=== PATIENT | female | born 1940 | race Caucasian/White ===

== ENCOUNTER 2017-02-22 12:54 | Outpatient (CLI) | payer MEDICARE ==
--- NOTE | 2017-02-22 16:03 | RAD ---
PA AND LATERAL VIEWS CHEST: HISTORY: Dyspnea. Malignant neoplasm of the left lower lobe, left bronchus. COMPARISON: 11/25/2016 FINDINGS: The heart size is normal. The aorta is tortuous. The lungs are well expanded without confluent are as of consolidation, pneumothorax, or pleural effusions. There are postop changes in the lower cerv ical spine. Degenerative changes are present in the thoracic spine. IMPRESSION: Stable exam. No acute process. POS: [facility]
== END 2017-02-22 12:55 | disposition home or self-care (01) ==
LOC: RAD 12:54
PROVIDERS: ATTEND Thoracic Surgery (Cardiothoracic Vascular Surgery)
DX: C34.32 Malignant neoplasm of lower lobe, left bronchus or lung (principal)
CPT/HCPCS: 71020

== ENCOUNTER 2017-05-19 14:32 | Outpatient (CLI) | payer MEDICARE ==
--- NOTE | 2017-05-19 14:55 | RAD ---
CHEST 2 VIEWS: Date: )05/19/17 HISTORY: Dyspnea. COMPARISON: 02/22/17. FINDINGS: Cardiac silhouette and pulmonary vasculature are unremarkable. Lungs are hyperinflated. Mediastinum i s midline with aortic calcification. There is no confluent air space consolidation, pneumothorax, or pleural fluid evident. Metallic clips overlie the aorticopulmonary window. There are postoperative ch anges of the cervical spine. IMPRESSION: 1. COPD. 2. Atherosclerosis. POS: [facility]
== END 2017-05-19 14:33 | disposition home or self-care (01) ==
LOC: RAD 14:32
PROVIDERS: ATTEND Thoracic Surgery (Cardiothoracic Vascular Surgery)
DX: C34.32 Malignant neoplasm of lower lobe, left bronchus or lung (principal); J44.9 Chronic obstructive pulmonary disease, unspecified; I70.90 Unspecified atherosclerosis
CPT/HCPCS: 71046

== ENCOUNTER 2017-06-11 11:23 | Outpatient (CLI) | payer MEDICARE | END 2017-06-11 11:24 | disposition home or self-care (01) | LOC: BICMAMMO 11:23 | PROVIDERS: ATTEND Internal Medicine | DX: Z12.31 Encounter for screening mammogram for malignant neoplasm of breast (principal) | CPT/HCPCS: 77063; 77067 ==

== ENCOUNTER 2017-08-05 08:33 | Outpatient (CLI) | payer MEDICARE | END 2017-08-05 08:34 | disposition home or self-care (01) | LOC: BICRAD 08:33 | PROVIDERS: ATTEND Anesthesiology Pain Medicine | DX: M16.0 Bilateral primary osteoarthritis of hip (principal); M47.816 Spondylosis without myelopathy or radiculopathy, lumbar region; M43.16 Spondylolisthesis, lumbar region; M81.0 Age-related osteoporosis without current pathological fracture; I70.90 Unspecified atherosclerosis | CPT/HCPCS: 72110 ==

== ENCOUNTER 2017-10-21 18:38 | Emergency (ER) | payer MEDICARE ==
[2017-10-21 19:15] LABS: #Basophils 0.1 thou/uL (0.0-0.2); #Eosinphils 0.2 thou/uL (0.0-0.7); #Lymphocytes 1.1 thou/uL (1.20-3.40); #Monocytes 0.4 thou/uL (0.11-0.59); #Neutrophils 2.7 thou/uL (1.40-6.50); %Basophils 1.2 % (0.0-1.0); %Eosinophils 4.1 % (0.0-10.0); %Lymphocytes 25.7 % (21.0-51.0); %Monocytes 9.1 % (0.0-10.0); %Neutrophils 59.9 % (42.0-75.0); Hemoglobin 12.2 g/dL (12.0-16.0); Mean Corpuscular Hemoglobin 32.6 pg (27.0-31.0); Mean Corpuscular Volume 95.9 fL (78.0-98.0); Mean Platelet Volume 6.6 fL (7.4-10.4); Platelet Count 150 thou/uL (130-400); RBC Distribution Width 11.8 % (11.5-14.5); Red Blood Cell (RBC) Count 3.74 mill/uL (4.20-5.40); White Blood Cell (WBC) Count 4.4 thou/uL (4.8-10.8)
[2017-10-21 19:34] LABS: ALT (SGPT) 24 U/L (8-55); AST (SGOT) 29 U/L (5-34); Albumin 4.5 g/dL (3.4-4.8); Alkaline Phosphatase 70 U/L (40-150); Anion Gap 13 mmol/L (10-20); BUN (Urea Nitrogen) 17 mg/dL (9.8-20.1); Bilirubin, Total 0.2 mg/dL (0.2-1.2); Calc. Creatinine Clearance 0 mL/min (70-130); Calcium 9.7 mg/dL (7.8-10.44); Carbon Dioxide 27 mmol/L (23-31); Chloride 94 mmol/L (98-107); Estimated GFR-MDRD 40; Globulin 2.4 g/dL (2.4-3.5); Glucose 97 mg/dL (83-110); Potassium 3.4 mmol/L (3.5-5.1); Protein, Total 6.9 g/dL (6.0-8.3); Sodium 131 mmol/L (136-145)
[2017-10-21 19:39] LABS: Bilirubin Negative (Negative); Blood, Urine Negative (Negative); Clarity CLEAR (Clear); Glucose, Urine (Dipstick) Negative (Negative); Leukocyte Negative (Negative); Nitrite Negative (Negative); Protein, Urine (Dipstick) Negative (Neg-Trace); Specific Gravity, Urine 1.008 (1.002-1.036); Urobilinogen 0.2 mg/dL (0.2-1.0); pH, Urine 7.5 (5.0-9.0)
== END 2017-10-21 19:51 | disposition home or self-care (01) ==
LOC: ERS 18:38
DX: R33.9 Retention of urine, unspecified (principal); E03.9 Hypothyroidism, unspecified; I10 Essential (primary) hypertension; F41.9 Anxiety disorder, unspecified; Z79.899 Other long term (current) drug therapy
CPT/HCPCS: 51702; 80053; 81003; 85025

== ENCOUNTER 2017-11-17 12:38 | Outpatient (CLI) | payer MEDICARE ==
--- NOTE | 2017-11-17 14:06 | RAD ---
TWO VIEWS CHEST: Comparison: History: Neoplasm of the lower lobe. FINDINGS: Two views of the chest shows normal sized cardiomediastinal silhouette with atherosclerotic calcifica tions in the aorta. There is no evidence of consolidation, mass, or pleural effusion. Degenerative ch anges are seen in the spine. IMPRESSION: No evidence of acute cardiopulmonary disease. POS: [facility]
== END 2017-11-17 12:39 | disposition home or self-care (01) ==
LOC: RAD 12:38
PROVIDERS: ATTEND Thoracic Surgery (Cardiothoracic Vascular Surgery)
DX: C34.32 Malignant neoplasm of lower lobe, left bronchus or lung (principal)
CPT/HCPCS: 71046

== ENCOUNTER 2018-04-06 11:53 | Outpatient (CLI) | payer MEDICARE ==
--- NOTE | 2018-04-06 14:30 | RAD ---
THREE VIEWS OF THE LUMBOSACRAL SPINE: History: Low back pain for years. FINDINGS: Lateral view of the lumbosacral spine were performed in neutral, flexion, and extension. The L4-5 and L5-S1 intervertebral discs are narrowed. There is grade I anterolisthesis of L3 on L4 and grade I an terolisthesis of L5 on S1. This alignment is unchanged with flexion and extension. Moderate posterior facet arthrosis is seen in the lower lumbosacral spine. IMPRESSION: Degenerative changes in the lumbosacral spine with unchanged alignment with bending. POS: [facility]
--- NOTE | 2018-04-06 15:01 | MRI ---
MRI LUMBAR SPINE WITHOUT CONTRAST: Date: 04/06/18 COMPARISON: Radiograph dated 04/16/18 and 08/05/17. FINDINGS: There is mild Grade I anterolisthesis of L3 on L4, L4 on L5, and L5 on S1. Conus is seen to terminate at approximately L1. There are small T2, T1 hypointensity seen within both kidneys, likely reflective of small renal cysts . At L5-S1, there is a broad based pseudobulge with loss of disc space height inducing mild neural fora pelon narrowing. At L4-5, there is a broad based bulge with facet hypertrophy inducing mild right neural foraminal maria m rowing. At L3-4, there is a broad based bulge with facet hypertrophy inducing mild central canal narrowing an d mild bilateral neural foraminal narrowing. At L2-3, there is a broad based bulge with facet hypertrophy without appreciable central canal or arabella ral foraminal narrowing. At L1-2, there is no appreciable central canal or neural foraminal narrowing. There is a mild broad b ased bulge. At T12-L1, there is no appreciable central canal or neural foraminal narrowing. At T11-T12, there is no appreciable central canal or neural foraminal narrowing. At T10-T11, there is a broad based disc osteophyte complex causing mild effacement of the ventral sub arachnoid space with contact of the ventral spinal cord. This suggestions mild ventral cord flattenin g without definite cord signal abnormality. IMPRESSION: 1. Grade I anterolisthesis of L3-4, L4-5, and L5-S1. 2. Mild central canal narrowing at L3-4 with mild bilateral neural foraminal narrowing. 3. Mild bilateral neural foraminal narrowing at L5-S1 and on the right at L4-5. 4. Mild ventral effacement of the spinal cord due to disc osteophyte complex at T10-T11. No definite cord signal abnormality is evident. 5. Bilateral renal cysts. POS: [facility]
== END 2018-04-06 11:54 | disposition home or self-care (01) ==
LOC: BICMRI 11:53
PROVIDERS: ATTEND Anesthesiology Pain Medicine
DX: M48.062 Spinal stenosis, lumbar region with neurogenic claudication (principal); M47.817 Spondylosis without myelopathy or radiculopathy, lumbosacral region; M43.16 Spondylolisthesis, lumbar region; M43.17 Spondylolisthesis, lumbosacral region; M48.07 Spinal stenosis, lumbosacral region; M25.78 Osteophyte, vertebrae; N28.1 Cyst of kidney, acquired
CPT/HCPCS: 72100; 72148

== ENCOUNTER 2018-05-11 14:34 | Outpatient (CLI) | payer MEDICARE ==
--- NOTE | 2018-05-11 16:12 | RAD ---
TWO VIEWS CHEST: Comparison: 11-17-17 History: Malignant neoplasm in the lower lobe of the left lung. FINDINGS: Two views of the chest shows normal sized cardiomediastinal silhouette with atherosclerotic calcifica tions in the aorta. There is no evidence of consolidation, mass, or pleural effusion. Hardware is see n in the cervical spine. IMPRESSION: No evidence of acute cardiopulmonary disease. POS: [facility]
== END 2018-05-11 14:35 | disposition home or self-care (01) ==
LOC: RAD 14:34
PROVIDERS: ATTEND Thoracic Surgery (Cardiothoracic Vascular Surgery)
DX: C34.32 Malignant neoplasm of lower lobe, left bronchus or lung (principal)
CPT/HCPCS: 71046

== ENCOUNTER 2018-06-13 09:31 | Outpatient (CLI) | payer MEDICARE | END 2018-06-13 09:32 | disposition home or self-care (01) | LOC: BICMAMMO 09:31 | PROVIDERS: ATTEND Internal Medicine | DX: Z12.31 Encounter for screening mammogram for malignant neoplasm of breast (principal); R92.1 Mammographic calcification found on diagnostic imaging of breast; Z85.118 Personal history of other malignant neoplasm of bronchus and lung; Z85.42 Personal history of malignant neoplasm of other parts of uterus | CPT/HCPCS: 77063; 77067 ==

== ENCOUNTER 2018-08-22 15:44 | Outpatient (CLI) | payer MEDICARE ==
--- NOTE | 2018-08-22 16:23 | RAD ---
Exam: Chest 2 views HISTORY:Cough Comparison: 05/11/2018 FINDINGS: Lungs: No masses or consolidation. Cardiac silhouette:Stable Pulmonary vessels: Stable prominence of right hilar region which may relate to ectatic pulmonary vasc ulature Pleural Spaces: Mild blunting of costophrenic sulci could relate to small volume pleural fluid versus thickening Pneumothorax: None Osseous abnormalities: None of acuity. IMPRESSION: Stable chest
== END 2018-08-22 15:45 | disposition home or self-care (01) ==
LOC: BICRAD 15:44
PROVIDERS: ATTEND Internal Medicine
DX: R05 Cough (principal)
CPT/HCPCS: 71046

== ENCOUNTER 2018-11-16 14:20 | Outpatient (CLI) | payer MEDICARE ==
--- NOTE | 2018-11-16 15:22 | RAD ---
2 VIEWS CHEST: Date: 11/16/18 COMPARISON: 05/11/18. HISTORY: Malignant neoplasm of the left lung. FINDINGS: 2 views of the chest show a normal sized cardiomediastinal silhouette with atherosclerotic calcificat ions in the aorta. There is no evidence of consolidation, mass, or pleural effusion. Degenerative ping nges are seen in the spine. IMPRESSION: No evidence of acute cardiopulmonary disease. POS: [facility]
== END 2018-11-16 14:21 | disposition home or self-care (01) ==
LOC: RAD 14:20
PROVIDERS: ATTEND Thoracic Surgery (Cardiothoracic Vascular Surgery)
DX: C34.32 Malignant neoplasm of lower lobe, left bronchus or lung (principal)
CPT/HCPCS: 71046

== ENCOUNTER 2018-11-29 12:10 | Outpatient (CLI) | payer MEDICARE ==
--- NOTE | 2018-11-29 12:33 | RAD ---
Exam:Right knee 4 view HISTORY: Pain. Fall. COMPARISON: None FINDINGS: No joint effusion. No significant loss of joint space height. No fracture. Atherosclerosis is noted IMPRESSION: No fracture.
--- NOTE | 2018-11-29 12:34 | RAD ---
Exam:4 views left knee HISTORY: Pain. Fall. COMPARISON: None FINDINGS: No joint effusion. No significant loss of joint space height. No fracture or malalignment. Atherosclerosis is noted. IMPRESSION: No fracture.
--- NOTE | 2018-11-29 12:34 | RAD ---
Exam:Left tibia fibula 2 views HISTORY: Fall. Pain. COMPARISON: None FINDINGS: No fracture. No cortical irregularity or periosteal reaction IMPRESSION: No fracture.
== END 2018-11-29 12:11 | disposition home or self-care (01) ==
LOC: BICRAD 12:10
PROVIDERS: ATTEND Physician Assistant
DX: M79.662 Pain in left lower leg (principal); M25.561 Pain in right knee; M25.562 Pain in left knee; W19.XXXA Unspecified fall, initial encounter

== ENCOUNTER 2019-03-22 10:39 | Outpatient (CLI) | payer MEDICARE ==
--- NOTE | 2019-03-22 10:55 | RAD ---
XR Chest Pa Lat STANDARD HISTORY: Chest pain, lung cancer COMPARISON: 08/22/2018 FINDINGS: The heart size is normal. The lungs are well expanded without focal areas of consolidation, pneumothorax or pleural effusions. Prominence of the right hilar region is stable. Degenerative changes in the spine are seen. IMPRESSION: No radiographic evidence of acute cardiopulmonary process.
== END 2019-03-22 10:40 | disposition home or self-care (01) ==
LOC: BICRAD 10:39
PROVIDERS: ATTEND Internal Medicine
DX: R07.89 Other chest pain (principal)
CPT/HCPCS: 71046

== ENCOUNTER 2019-04-04 08:31 | Outpatient (CLI) | payer MEDICARE ==
--- NOTE | 2019-04-04 09:04 | BD ---
EXAM: Bone densitometry using DEXA HISTORY: 78 yo female. Screening for postmenopausal osteoporosis FINDINGS: L1--bone mineral density 0.838 g/sq cm; T score -1.4 ; Z score 1.0 L2--bone mineral density 0.917 g/sq cm; T score -1.0 ; Z score 1.7 L3--bone mineral density 1.154 g/sq cm; T score 0.6 ; Z score 3.4 L4--bone mineral density 0.984 g/sq cm; T score -0.7 ; Z score 2.2 Total L1-L4--bone mineral density 0.965 g/sq cm; T score -0.7 ; Z score 2.0 Left femoral neck--bone mineral density0.578; T score -2.4 ; Z score -0.1 Total proximal left femur--bone mineral density 0.669; T score -2.2 ; Z score -0.1 There has been an interval improvement of 2% in the BMD of the lumbar spine and a improvement of 2. 6% in the BMD of the proximal femur since the previous study of 03/01/2017. IMPRESSION: Osteopenia
== END 2019-04-04 08:32 | disposition home or self-care (01) ==
LOC: BICMAMMO 08:31
PROVIDERS: ATTEND Internal Medicine
DX: M81.0 Age-related osteoporosis without current pathological fracture (principal); M85.80 Other specified disorders of bone density and structure, unspecified site
CPT/HCPCS: 77080

== ENCOUNTER 2019-06-21 09:35 | Outpatient (CLI) | payer MEDICARE ==
--- NOTE | 2019-06-21 10:04 | MMO ---
Bilateral MAMMO Bilat Screen [facility]. CLINICAL HISTORY: Patient is 79 years old and is seen for screening. The patient has no family history of breast cancer. The patient has a history of lung cancer in 2016 and uterine cancer at age 38. VIEWS: The views performed were: bilateral craniocaudal with tomosynthesis and bilateral mediolateral oblique with tomosynthesis. FILMS COMPARED: The present examination has been compared to prior imaging studies performed at [facility] on 04/06/2015, 05/26/2016, 06/11/2017 and 06/13/2018. This study has been interpreted with the assistance of computer-aided detection. MAMMOGRAM FINDINGS: There are scattered fibroglandular densities. There are stable benign appearing calcifications seen in both breasts. There are also vascular calcifications. There are no suspicious masses, suspicious calcifications, or new areas of architectural distortion. IMPRESSION: THERE IS NO MAMMOGRAPHIC EVIDENCE OF MALIGNANCY. A ROUTINE FOLLOW-UP MAMMOGRAM IN 1 YEAR IS RECOMMENDED. THE RESULTS OF THIS EXAM WERE SENT TO THE PATIENT. ACR BI-RADS Category 2 - Benign finding MAMMOGRAPHY NOTE: 1. A negative mammogram report should not delay a biopsy if a dominant of clinically suspicious mass is present. 2. Approximately 10% to 15% of breast cancers are not detected by mammography. 3. Adenosis and dense breasts may obscure an underlying neoplasm. Reported by: CHARIS VALDEZ MD Electonically Signed: [id number]
== END 2019-06-21 09:36 | disposition home or self-care (01) ==
LOC: BICMAMMO 09:35
PROVIDERS: ATTEND Internal Medicine
DX: Z12.31 Encounter for screening mammogram for malignant neoplasm of breast (principal); Z85.118 Personal history of other malignant neoplasm of bronchus and lung; Z85.42 Personal history of malignant neoplasm of other parts of uterus
CPT/HCPCS: 77063; 77067

== ENCOUNTER 2019-09-03 13:26 | Emergency (ER) | payer MEDICARE ==
--- NOTE | 2019-09-03 14:40 | RAD ---
Radiograph left digits 2 views: HISTORY: 79-year-old female status post laceration injury. FINDINGS: No evidence of fracture or dislocation of the second, third, and fourth proximal, middle, and distal phalanges. Focal round 5 mm hyperdensity overlying the soft tissues abutting the volar aspect of the third distal tuft on the lateral view may represent part of the overlying bandage. No definite pereira bcutaneous emphysema identified. IMPRESSION: No fracture
[2019-09-03] MEDS ORDERED: Bupivacaine 0.5% 10 ML VIAL ONE (14:45)
[2019-09-03] MEDS ORDERED: Lidocaine 1% PF 5 ML VIAL ONE (14:45)
[2019-09-03] MEDS ORDERED: Bacitracin 1 PK ONE (15:41)
== END 2019-09-03 15:55 | disposition home or self-care (01) ==
LOC: ERS 13:26
DX: S61.313A Laceration without foreign body of left middle finger with damage to nail, initial encounter (principal); E03.9 Hypothyroidism, unspecified; F41.9 Anxiety disorder, unspecified; Z85.118 Personal history of other malignant neoplasm of bronchus and lung; M81.0 Age-related osteoporosis without current pathological fracture; I10 Essential (primary) hypertension; Z79.899 Other long term (current) drug therapy; W22.8XXA Striking against or struck by other objects, initial encounter
CPT/HCPCS: 11750; J2001; J3490

== ENCOUNTER 2019-11-13 15:21 | Emergency (ER) | payer MEDICARE | END 2019-11-13 16:30 | disposition left against medical advice (07) | LOC: ERS 15:21 | DX: Z53.21 Procedure and treatment not carried out due to patient leaving prior to being seen by health care provider (principal) ==

== ENCOUNTER 2020-06-24 08:41 | Outpatient (CLI) | payer MEDICARE ==
--- NOTE | 2020-06-24 10:42 | MMO ---
Bilateral MAMMO Bilat Screen [facility]. CLINICAL HISTORY: Patient is 80 years old and is seen for screening. The patient has no family history of breast cancer. The patient has a history of lung cancer in 2016 and uterine cancer at age 38. VIEWS: The views performed were: bilateral craniocaudal with tomosynthesis and bilateral mediolateral oblique with tomosynthesis. FILMS COMPARED: The present examination has been compared to prior imaging studies performed at [facility] on 05/26/2016, 06/11/2017, 06/13/2018 and 06/21/2019. This study has been interpreted with the assistance of computer-aided detection. MAMMOGRAM FINDINGS: There are scattered fibroglandular densities. Benign calcifications are noted bilaterally. There are no suspicious masses, suspicious calcifications, or new areas of architectural distortion. IMPRESSION: THERE IS NO MAMMOGRAPHIC EVIDENCE OF MALIGNANCY. A ROUTINE FOLLOW-UP MAMMOGRAM IN 1 YEAR IS RECOMMENDED. THE RESULTS OF THIS EXAM WERE SENT TO THE PATIENT. ACR BI-RADS Category 2 - Benign finding MAMMOGRAPHY NOTE: 1. A negative mammogram report should not delay a biopsy if a dominant of clinically suspicious mass is present. 2. Approximately 10% to 15% of breast cancers are not detected by mammography. 3. Adenosis and dense breasts may obscure an underlying neoplasm. Reported by: JOSEFA PARNELL MD Electonically Signed: [id number]
== END 2020-06-24 08:42 | disposition home or self-care (01) ==
LOC: BICMAMMO 08:41
PROVIDERS: ATTEND Internal Medicine
DX: Z12.31 Encounter for screening mammogram for malignant neoplasm of breast (principal); Z85.118 Personal history of other malignant neoplasm of bronchus and lung; Z85.42 Personal history of malignant neoplasm of other parts of uterus
CPT/HCPCS: 77063; 77067

== ENCOUNTER 2020-07-05 10:33 | Outpatient (CLI) | payer MEDICARE | END 2020-07-05 10:34 | disposition home or self-care (01) | LOC: BICRAD 10:33 | PROVIDERS: ATTEND Internal Medicine | DX: Z08 Encounter for follow-up examination after completed treatment for malignant neoplasm (principal); Z85.118 Personal history of other malignant neoplasm of bronchus and lung | CPT/HCPCS: 71046 ==

== ENCOUNTER 2021-03-10 11:07 | Outpatient (CLI) | payer MEDICARE ==
[2021-03-10 20:27] LABS: SARS-CoV-2 PCR by NAA Not Detected (NotDetected)
== END 2021-03-10 11:08 | disposition home or self-care (01) ==
LOC: LABBT 11:07
PROVIDERS: ATTEND Family Medicine
DX: Z01.812 Encounter for preprocedural laboratory examination (principal); Z20.822 Contact with and (suspected) exposure to COVID-19
CPT/HCPCS: U0003; U0005

== ENCOUNTER 2021-03-12 09:19 | Outpatient (CLI) | payer MEDICARE | END 2021-03-12 09:20 | disposition home or self-care (01) | PROVIDERS: ATTEND Physician Assistant Medical | DX: R13.13 Dysphagia, pharyngeal phase (principal); K21.9 Gastro-esophageal reflux disease without esophagitis | CPT/HCPCS: 74230 ==

== ENCOUNTER 2021-03-26 07:03 | Emergency (ER) | payer MEDICARE ==
[2021-03-26 07:39] LABS: #Eosinphils 0.1 thou/uL (0.0-0.7); #Lymphocytes 0.9 thou/uL (1.20-3.40); #Monocytes 0.4 thou/uL (0.11-0.59); #Neutrophils 4.7 thou/uL (1.40-6.50); %Basophils 0.3 % (0.0-1.0); %Eosinophils 0.9 % (0.0-10.0); %Lymphocytes 14.4 % (21.0-51.0); %Monocytes 6.8 % (0.0-10.0); %Neutrophils 77.6 % (42.0-75.0); Hemoglobin 14.3 g/dL (12.0-16.0); Mean Corpuscular HGB CONC 33.7 g/dL (32.0-36.0); Mean Corpuscular Hemoglobin 32.5 pg (27.0-31.0); Mean Corpuscular Volume 96.6 fL (78.0-98.0); Mean Platelet Volume 6.8 fL (7.4-10.4); Platelet Count 175 thou/uL (130-400); Red Blood Cell (RBC) Count 4.39 mill/uL (4.20-5.40); White Blood Cell (WBC) Count 6.1 thou/uL (4.8-10.8)
[2021-03-26] MEDS ORDERED: Ondansetron PF 4 MG/2 ML Vial ONE (07:48)
[2021-03-26] MEDS ORDERED: Morphine 4 MG/ML VIAL ONE (07:48)
[2021-03-26 08:00] LABS: ALT (SGPT) 19 U/L (8-55); AST (SGOT) 23 U/L (5-34); Albumin 4.6 g/dL (3.4-4.8); Alkaline Phosphatase 90 U/L (40-110); Anion Gap 15 mmol/L (10-20); BUN (Urea Nitrogen) 10 mg/dL (9.8-20.1); Bilirubin, Total 0.6 mg/dL (0.2-1.2); Calc. Creatinine Clearance 0 mL/min (70-130); Calcium 9.6 mg/dL (7.8-10.44); Carbon Dioxide 29 mmol/L (23-31); Chloride 94 mmol/L (98-107); Globulin 2.8 g/dL (2.4-3.5); Glucose 124 mg/dL (83-110); Potassium 3.5 mmol/L (3.5-5.1); Protein, Total 7.4 g/dL (5.8-8.1); Sodium 134 mmol/L (136-145)
[2021-03-26 10:49] LABS: SARS-CoV-2 NAA Rapid Test Not Detected (NotDetected)
== END 2021-03-26 11:08 | disposition admitted as inpatient to this hospital (09) ==
LOC: ERS 07:03
DX: T18.128A Food in esophagus causing other injury, initial encounter (principal); Z20.822 Contact with and (suspected) exposure to COVID-19; E03.9 Hypothyroidism, unspecified; M81.0 Age-related osteoporosis without current pathological fracture; Z87.891 Personal history of nicotine dependence; I10 Essential (primary) hypertension; Z79.899 Other long term (current) drug therapy
CPT/HCPCS: 71045; 74177; 80053; 84484; 85025; 93005; 94760; U0002; 96374; 96375; J2270; J2405

== ENCOUNTER 2021-03-28 10:38 | Emergency (ER) | payer MEDICARE ==
[2021-03-28] MEDS ORDERED: HYDROcodone/Acetaminophen 10/325 mg Tablet ONE (11:19)
== END 2021-03-28 11:51 | disposition home or self-care (01) ==
LOC: ERS 10:38
DX: B02.9 Zoster without complications (principal); E03.9 Hypothyroidism, unspecified; I10 Essential (primary) hypertension; M81.0 Age-related osteoporosis without current pathological fracture; Z87.891 Personal history of nicotine dependence; Z85.42 Personal history of malignant neoplasm of other parts of uterus; Z85.118 Personal history of other malignant neoplasm of bronchus and lung; Z79.899 Other long term (current) drug therapy
CPT/HCPCS: 99282

== ENCOUNTER 2021-04-18 09:51 | Outpatient (CLI) | payer MEDICARE | END 2021-04-18 09:52 | disposition home or self-care (01) | LOC: BICULT 09:51 | PROVIDERS: ATTEND Internal Medicine | DX: N13.30 Unspecified hydronephrosis (principal); K83.8 Other specified diseases of biliary tract; N28.1 Cyst of kidney, acquired; N32.89 Other specified disorders of bladder; Z90.49 Acquired absence of other specified parts of digestive tract | CPT/HCPCS: 76705; 76770 ==

== ENCOUNTER 2021-05-08 12:17 | Outpatient (CLI) | payer MEDICARE | END 2021-05-08 12:18 | disposition home or self-care (01) | LOC: BICRAD 12:17 | PROVIDERS: ATTEND Internal Medicine | DX: R05.9 Cough, unspecified (principal) | CPT/HCPCS: 71046 ==

== ENCOUNTER 2022-02-16 10:23 | Outpatient (CLI) | payer MEDICARE | END 2022-02-16 10:24 | disposition home or self-care (01) | LOC: BICRAD 10:23 | PROVIDERS: ATTEND Nurse Practitioner Family | DX: C34.32 Malignant neoplasm of lower lobe, left bronchus or lung (principal) | CPT/HCPCS: 71046 ==

== ENCOUNTER 2022-06-30 13:49 | Outpatient (CLI) | payer MEDICARE, OTHER | END 2022-06-30 13:50 | disposition home or self-care (01) | LOC: BICRAD 13:49 | PROVIDERS: ATTEND Internal Medicine | DX: Z08 Encounter for follow-up examination after completed treatment for malignant neoplasm (principal); Z85.118 Personal history of other malignant neoplasm of bronchus and lung | CPT/HCPCS: 71046 ==

== ENCOUNTER 2022-10-14 12:42 | Outpatient (CLI) | payer MEDICARE, OTHER | END 2022-10-14 12:43 | disposition home or self-care (01) | LOC: BICMAMMO 12:42 | PROVIDERS: ATTEND Internal Medicine | DX: Z12.31 Encounter for screening mammogram for malignant neoplasm of breast (principal); Z78.0 Asymptomatic menopausal state; M81.0 Age-related osteoporosis without current pathological fracture | CPT/HCPCS: 77063; 77067; 77080 ==

== ENCOUNTER 2023-03-01 11:17 | Outpatient (CLI) | payer MEDICARE | END 2023-03-01 11:18 | disposition home or self-care (01) | LOC: RAD 11:17 | PROVIDERS: ATTEND Internal Medicine | DX: R13.12 Dysphagia, oropharyngeal phase (principal); K21.9 Gastro-esophageal reflux disease without esophagitis; R05.8 Other specified cough | CPT/HCPCS: 74230 ==

== ENCOUNTER 2023-03-11 12:09 | Outpatient (CLI) | payer MEDICARE | END 2023-03-11 12:10 | disposition home or self-care (01) | LOC: BICRAD 12:09 | PROVIDERS: ATTEND Internal Medicine | DX: R05.3 Chronic cough (principal); I70.0 Atherosclerosis of aorta; Q25.46 Tortuous aortic arch; J98.4 Other disorders of lung | CPT/HCPCS: 71046 ==

== ENCOUNTER 2023-10-19 12:45 | Outpatient (CLI) | payer MEDICARE | END 2023-10-19 12:46 | disposition home or self-care (01) | LOC: BICMAMMO 12:45 | PROVIDERS: ATTEND Internal Medicine | DX: Z12.31 Encounter for screening mammogram for malignant neoplasm of breast (principal); Z85.118 Personal history of other malignant neoplasm of bronchus and lung; Z85.42 Personal history of malignant neoplasm of other parts of uterus | CPT/HCPCS: 77063; 77067 ==

== ENCOUNTER 2023-11-26 11:34 | Outpatient (CLI) | payer MEDICARE ==
[2023-11-26] MEDS ORDERED: Barium Sulfate 96% 176 GM BOT (xray ONLY) ONE (12:08)
[2023-11-26] MEDS ORDERED: E-Z-HD 98% W/W 340GM BOT (x-ray ONLY) ONE (12:08)
== END 2023-11-26 11:35 | disposition home or self-care (01) ==
LOC: RAD 11:34
PROVIDERS: ATTEND Physician Assistant Medical
DX: K21.9 Gastro-esophageal reflux disease without esophagitis (principal); R13.14 Dysphagia, pharyngoesophageal phase; K59.00 Constipation, unspecified; R30.0 Dysuria; K22.89 Other specified disease of esophagus
CPT/HCPCS: 74220

== ENCOUNTER 2024-10-20 13:52 | Outpatient (CLI) | payer MEDICARE | END 2024-10-20 13:53 | disposition home or self-care (01) | LOC: BICMAMMO 13:52 | PROVIDERS: ATTEND Internal Medicine | DX: Z12.31 Encounter for screening mammogram for malignant neoplasm of breast (principal); Z85.118 Personal history of other malignant neoplasm of bronchus and lung; Z85.42 Personal history of malignant neoplasm of other parts of uterus | CPT/HCPCS: 77063; 77067 ==

== ENCOUNTER 2024-11-24 16:42 | Inpatient (IN) | payer MEDICARE ==
[2024-11-24] MEDS ORDERED: Acetaminophen 500 MG TAB ONE (17:42)
[2024-11-24] MEDS ORDERED: CEFAZOLIN 2 GM VIAL ONE (17:43)
[2024-11-24] MEDS ORDERED: Ondansetron PF 4 MG/2 ML Vial ONE (17:43)
[2024-11-24 17:55] LABS: #Basophils 0.03 10x3/uL (0.0-0.2); #Eosinophils Less than 0.03 10x3/uL (0.0-0.7); #Monocytes 1.36 10x3/uL (0.11-0.59); #Neutrophils 7.96 10x3/uL (1.40-6.50); %Basophils 0.3 % (0.0-1.0); %Eosinophils 0.2 % (0.0-10.0); %Lymphocytes 7.3 % (21.0-51.0); %Monocytes 13.4 % (0.0-10.0); %Neutrophils 78.2 % (42.0-75.0); Hematocrit 31.1 % (36.0-47.0); Hemoglobin 10.3 g/dL (12.0-16.0); Mean Corpuscular Hemoglobin 30.2 pg (27.0-31.0); Mean Corpuscular Volume 91.2 fL (78.0-98.0); Platelet Count 193 10x3/uL (130-400); Red Blood Cell (RBC) Count 3.41 mill/uL (4.20-5.40); White Blood Cell (WBC) Count 10.17 10x3/uL (4.8-10.8)
[2024-11-24 18:04] LABS: Actual Bicarbonate (HCO3v) 24.3 mEq/L (22-28); Base Excess -0.2 mEq/L (-2.0 to +3.0); Calcium, Ionized (venous) 1.12 mmol/L (1.16-1.32); Chloride (VBG) 92 mmol/L (98-106); Hematocrit-VBG 34 % (36.0-47.0); Hemoglobin (Hb) 11.7 g/dL (11.7-16.1); Potassium (VBG) 3.88 mmol/L (3.70-5.30); Sodium 129 mmol/L (133-146)
[2024-11-24 18:27] LABS: ALT (SGPT) 12 U/L (Less than 34); AST (SGOT) 15 U/L (11-34); Albumin 3.5 g/dL (3.1-4.5); Alkaline Phosphatase 88 U/L (40-110); Anion Gap 16 mmol/L (10-20); BUN (Urea Nitrogen) 16 mg/dL (9.8-20.1); Bilirubin, Total 0.5 mg/dL (0.3-1.2); Calc. Creatinine Clearance 0 mL/min (70-130); Calcium 9.2 mg/dL (7.8-10.44); Carbon Dioxide 24 mmol/L (23-31); Chloride 94 mmol/L (98-107); Globulin 3.4 g/dL (2.4-3.5); Glucose 125 mg/dL (83-110); Potassium 3.9 mmol/L (3.5-5.1); Sodium 130 mmol/L (136-145)
[2024-11-24 18:40] LABS: CAUTI Indications for Culture Pelvic or flank pain; Glucose, Urine (Dipstick) Normal (Negative); Leukocyte 500 Leu/uL (Negative); Protein, Urine (Dipstick) 100 mg/dL (Neg-Trace); RBC/HPF 21-50 HPF (0-3); Specific Gravity, Urine 1.012 (1.002-1.036); WBC/HPF Greater than 50 HPF (0-3)
[2024-11-24 18:45] LABS: Bacteria/HPF 1+ HPF (None Seen)
[2024-11-24 18:46] LABS: Urine Culture Reflex Yes Yes
[2024-11-24 18:48] LABS: Magnesium 1.7 mg/dL (1.6-2.6)
[2024-11-24 18:52] LABS: Troponin I 0.020 ng/mL (< 0.028)
[2024-11-24] MEDS ORDERED: Cefepime 2 GM VIAL ONE (19:05)
[2024-11-24] MEDS ORDERED: Acetaminophen 325 MG TAB PO PRN (19:45)
[2024-11-24] MEDS ORDERED: Ondansetron PF 4 MG/2 ML Vial IVP PRN (19:45)
[2024-11-24 20:35] LABS: Osmolality, Serum 271 mOsm/kg (280-301)
[2024-11-24 20:36] LABS: Osmolality, Urine 351 mOsm/kg (50-1200)
[2024-11-24 20:37] VITALS: BMI 25.1
[2024-11-25] MEDS: Benzonatate 100 MG CAP PO SCH (03:42)
[2024-11-25 05:25] LABS: #Basophils 0.05 10x3/uL (0.0-0.2); #Eosinophils 0.10 10x3/uL (0.0-0.7); #Monocytes 1.10 10x3/uL (0.11-0.59); #Neutrophils 6.68 10x3/uL (1.40-6.50); %Basophils 0.6 % (0.0-1.0); %Eosinophils 1.1 % (0.0-10.0); %Lymphocytes 10.7 % (21.0-51.0); %Monocytes 12.3 % (0.0-10.0); %Neutrophils 74.9 % (42.0-75.0); Hematocrit 32.3 % (36.0-47.0); Hemoglobin 10.6 g/dL (12.0-16.0); Mean Corpuscular Hemoglobin 30.2 pg (27.0-31.0); Mean Corpuscular Volume 92.0 fL (78.0-98.0); Platelet Count 195 10x3/uL (130-400); Red Blood Cell (RBC) Count 3.51 mill/uL (4.20-5.40); White Blood Cell (WBC) Count 8.92 10x3/uL (4.8-10.8)
[2024-11-25 05:39] LABS: Anion Gap 16 mmol/L (10-20); BUN (Urea Nitrogen) 15 mg/dL (9.8-20.1); Calc. Creatinine Clearance 39 mL/min (70-130); Calcium 9.1 mg/dL (7.8-10.44); Carbon Dioxide 26 mmol/L (23-31); Chloride 97 mmol/L (98-107); Glucose 99 mg/dL (83-110); Magnesium 1.8 mg/dL (1.6-2.6); Potassium 4.0 mmol/L (3.5-5.1); Sodium 135 mmol/L (136-145)
[2024-11-25] MEDS: Enoxaparin 30 MG (0.3 mL) SYRINGE SC SCH (08:27)
[2024-11-25] MEDS: Furosemide 20 MG TAB PO SCH (08:28)
[2024-11-25] MEDS: Cholecalciferol 1,000 UNITS (25 MCG) TAB PO SCH (08:28)
[2024-11-25] MEDS: Losartan 25 MG TAB PO SCH (08:28)
[2024-11-25] MEDS: predniSONE 20 MG TAB PO SCH (08:28)
[2024-11-25] MEDS: Pantoprazole 40 MG DR.TAB PO SCH (08:28)
[2024-11-25] MEDS ORDERED: Non-Formulary Item 1 EACH (Ascorbic Acid [Vitamin C] 1,000 MG Tablet) PO SCH (09:00)
[2024-11-25] MEDS ORDERED: Non-Formulary Item 1 EACH (Omeprazole [Omeprazole] 20 MG Capsule.Dr) PO SCH (09:00)
[2024-11-25] MEDS ORDERED: Non-Formulary Item 1 EACH (Cholecalciferol (Vitamin D3) [Vitamin D3] 1,000 UNIT Capsule) PO SCH (09:00)
[2024-11-25] MEDS: Acetaminophen 325 MG TAB PO PRN (10:38)
[2024-11-25 12:11] VITALS: BMI 25.1
[2024-11-25] MEDS: HYDROcodone/Acetaminophen 5/325 mg Tablet PO PRN (12:32)
[2024-11-25] MEDS: Benzonatate 100 MG CAP PO PRN (20:10)
[2024-11-25] MEDS ORDERED: Simvastatin 10 MG TAB PO SCH (21:00)
[2024-11-26] MEDS: guaiFENesin/Codeine 200 mg/20 mg 10 ml Cup PO SCH (03:19)
[2024-11-26 04:50] LABS: #Basophils Less than 0.03 10x3/uL (0.0-0.2); #Eosinophils 0.05 10x3/uL (0.0-0.7); #Monocytes 0.78 10x3/uL (0.11-0.59); #Neutrophils 7.49 10x3/uL (1.40-6.50); %Basophils 0.2 % (0.0-1.0); %Eosinophils 0.5 % (0.0-10.0); %Lymphocytes 11.2 % (21.0-51.0); %Monocytes 8.2 % (0.0-10.0); %Neutrophils 78.6 % (42.0-75.0); Hematocrit 29.7 % (36.0-47.0); Hemoglobin 9.8 g/dL (12.0-16.0); Mean Corpuscular Hemoglobin 30.2 pg (27.0-31.0); Mean Corpuscular Volume 91.7 fL (78.0-98.0); Platelet Count 216 10x3/uL (130-400); Red Blood Cell (RBC) Count 3.24 mill/uL (4.20-5.40); White Blood Cell (WBC) Count 9.53 10x3/uL (4.8-10.8)
[2024-11-26 05:18] LABS: Anion Gap 12 mmol/L (10-20); BUN (Urea Nitrogen) 20 mg/dL (9.8-20.1); Calc. Creatinine Clearance 30 mL/min (70-130); Calcium 9.4 mg/dL (7.8-10.44); Carbon Dioxide 27 mmol/L (23-31); Chloride 99 mmol/L (98-107); Glucose 110 mg/dL (83-110); Magnesium 1.9 mg/dL (1.6-2.6); Potassium 4.3 mmol/L (3.5-5.1); Sodium 134 mmol/L (136-145)
[2024-11-26] MEDS: Enoxaparin 40 MG (0.4 mL) SYRINGE SC SCH (08:06)
[2024-11-27] MEDS: guaiFENesin/Codeine 200 mg/20 mg 10 ml Cup PO PRN (04:44)
[2024-11-27 07:07] LABS: #Basophils 0.04 10x3/uL (0.0-0.2); #Eosinophils 0.12 10x3/uL (0.0-0.7); #Monocytes 0.84 10x3/uL (0.11-0.59); #Neutrophils 7.78 10x3/uL (1.40-6.50); %Basophils 0.4 % (0.0-1.0); %Eosinophils 1.1 % (0.0-10.0); %Lymphocytes 14.2 % (21.0-51.0); %Monocytes 8.0 % (0.0-10.0); %Neutrophils 73.9 % (42.0-75.0); Hematocrit 34.8 % (36.0-47.0); Hemoglobin 11.3 g/dL (12.0-16.0); Mean Corpuscular Hemoglobin 29.8 pg (27.0-31.0); Mean Corpuscular Volume 91.8 fL (78.0-98.0); Platelet Count 331 10x3/uL (130-400); Red Blood Cell (RBC) Count 3.79 mill/uL (4.20-5.40); White Blood Cell (WBC) Count 10.53 10x3/uL (4.8-10.8)
[2024-11-27 07:31] LABS: Anion Gap 16 mmol/L (10-20); BUN (Urea Nitrogen) 33 mg/dL (9.8-20.1); Calc. Creatinine Clearance 35 mL/min (70-130); Calcium 10.0 mg/dL (7.8-10.44); Carbon Dioxide 27 mmol/L (23-31); Chloride 95 mmol/L (98-107); Glucose 104 mg/dL (83-110); Potassium 4.3 mmol/L (3.5-5.1); Sodium 134 mmol/L (136-145)
[2024-11-27] MEDS: Enoxaparin 30 MG (0.3 mL) SYRINGE SC SCH (08:53)
[2024-11-27] MEDS ORDERED: Guaifenesin DM 100-10/5 ML UDCUP PO PRN (12:06)
[2024-11-27] MEDS: Senokot S 8.6-50 MG TAB PO SCH (12:30)
[2024-11-27] MEDS ORDERED: Electrolyte Replacement Protocol 1 EACH FS SCH (20:14)
[2024-11-27] MEDS ORDERED: Senokot S 8.6-50 MG TAB PO SCH (21:00)
[2024-11-28 06:25] LABS: Anion Gap 16 mmol/L (10-20); BUN (Urea Nitrogen) 38 mg/dL (9.8-20.1); Calc. Creatinine Clearance 36 mL/min (70-130); Calcium 10.2 mg/dL (7.8-10.44); Carbon Dioxide 28 mmol/L (23-31); Chloride 96 mmol/L (98-107); Glucose 82 mg/dL (83-110); Magnesium 1.9 mg/dL (1.6-2.6); Potassium 4.4 mmol/L (3.5-5.1); Sodium 136 mmol/L (136-145)
[2024-11-28 07:08] LABS: Hematocrit 37.1 % (36.0-47.0); Hemoglobin 12.1 g/dL (12.0-16.0); Mean Corpuscular Hemoglobin 29.7 pg (27.0-31.0); Mean Corpuscular Volume 91.2 fL (78.0-98.0); Platelet Count 371 10x3/uL (130-400); Red Blood Cell (RBC) Count 4.07 mill/uL (4.20-5.40); White Blood Cell (WBC) Count 11.12 10x3/uL (4.8-10.8)
[2024-11-28 07:47] LABS: Platelet Adequacy Comment Platelets Normal; Polychromasia SLIGHT = 2-3 cells HPF (0-2); Schistocytes SLIGHT = 2-5 cells HPF (0-1); Smudge Cells 2.9 %; Toxic Granulation SLIGHT
[2024-11-28] MEDS: Magnesium 2 GM/50 ML(in water) 2 GM in Premix 1 BAG IVPB SCH (09:12)
[2024-11-28] MEDS: Ketorolac Tromethamine 30 MG (1 mL) VIAL IVP SCH (10:16)
[2024-11-28] MEDS ORDERED: PROPOFOL 20 ML ONE (16:03)
[2024-11-28] MEDS ORDERED: Ondansetron PF 4 MG/2 ML Vial ONE (16:03)
[2024-11-28] MEDS ORDERED: Lidocaine 2% PF 100 mg/5 ml Syringe ONE (16:03)
[2024-11-28] MEDS ORDERED: PHENYLEPHRINE-NS 100 MCG/ML 10 ML SYRINGE ONE (16:09)
[2024-11-28] MEDS ORDERED: fentaNYL PF 100 MCG/2 ML SYRINGE ONE (16:35)
[2024-11-28] MEDS: Senokot S 8.6-50 MG TAB PO SCH (16:43)
[2024-11-29] MEDS: Benzonatate 100 MG CAP PO PRN (05:44)
[2024-11-29 06:35] LABS: Hematocrit 31.8 % (36.0-47.0); Hemoglobin 10.2 g/dL (12.0-16.0); Mean Corpuscular Hemoglobin 29.8 pg (27.0-31.0); Mean Corpuscular Volume 93.0 fL (78.0-98.0); Platelet Count 288 10x3/uL (130-400); Red Blood Cell (RBC) Count 3.42 mill/uL (4.20-5.40); White Blood Cell (WBC) Count 8.23 10x3/uL (4.8-10.8)
[2024-11-29 07:11] LABS: Anion Gap 12 mmol/L (10-20); BUN (Urea Nitrogen) 35 mg/dL (9.8-20.1); Calc. Creatinine Clearance 37 mL/min (70-130); Calcium 9.4 mg/dL (7.8-10.44); Carbon Dioxide 28 mmol/L (23-31); Chloride 99 mmol/L (98-107); Glucose 102 mg/dL (83-110); Magnesium 2.4 mg/dL (1.6-2.6); Potassium 4.7 mmol/L (3.5-5.1); Sodium 134 mmol/L (136-145)
[2024-11-29 09:36] LABS: Burr Cells SLIGHT = 2-5 cells HPF (0-1); Macrocytosis SLIGHT = 6-15 cells HPF (0-5); Plasma Cells 1 % (0-0); Platelet Adequacy Comment Platelets Normal; Polychromasia SLIGHT = 2-3 cells HPF (0-2); Smudge Cells 1.0 %
[2024-11-29 12:48] VITALS: BP 125/73; TEMP 97.6
== END 2024-11-29 14:30 | disposition home or self-care (01) | DRG 659 ==
LOC: ERS 16:42 → T4-B 19:32
PROVIDERS: ADMIT Internal Medicine; ATTEND Internal Medicine
PROC: BT1D1ZZ Fluoroscopy of Right Kidney, Ureter and Bladder using Low Osmolar Contrast (ICD-10-PCS; principal; 2024-11-24)
PROC: 0T768DZ Dilation of Right Ureter with Intraluminal Device, Via Natural or Artificial Opening Endoscopic (ICD-10-PCS; 2024-11-24)
PROC: 3E03329 Introduction of Other Anti-infective into Peripheral Vein, Percutaneous Approach (ICD-10-PCS; 2024-11-24)
DX: N39.0 Urinary tract infection, site not specified (principal); E43 Unspecified severe protein-calorie malnutrition; E87.1 Hypo-osmolality and hyponatremia; R78.81 Bacteremia; Z16.23 Resistance to quinolones and fluoroquinolones; E03.9 Hypothyroidism, unspecified; K59.00 Constipation, unspecified; R39.15 Urgency of urination; N39.3 Stress incontinence (female) (male); R35.1 Nocturia; I10 Essential (primary) hypertension; M19.90 Unspecified osteoarthritis, unspecified site; R33.9 Retention of urine, unspecified; F41.9 Anxiety disorder, unspecified; J44.9 Chronic obstructive pulmonary disease, unspecified; E78.5 Hyperlipidemia, unspecified; K21.9 Gastro-esophageal reflux disease without esophagitis; D64.9 Anemia, unspecified; B96.5 Pseudomonas (aeruginosa) (mallei) (pseudomallei) as the cause of diseases classified elsewhere; E83.42 Hypomagnesemia; M54.2 Cervicalgia; Z85.00 Personal history of malignant neoplasm of unspecified digestive organ; Z85.118 Personal history of other malignant neoplasm of bronchus and lung; Z85.42 Personal history of malignant neoplasm of other parts of uterus; Z98.890 Other specified postprocedural states; Z86.0100 Personal history of colon polyps, unspecified; Z90.710 Acquired absence of both cervix and uterus; Z87.891 Personal history of nicotine dependence; Z88.8 Allergy status to other drugs, medicaments and biological substances; Z91.018 Allergy to other foods; Z79.899 Other long term (current) drug therapy; Z87.440 Personal history of urinary (tract) infections; Z90.2 Acquired absence of lung [part of]; Z90.49 Acquired absence of other specified parts of digestive tract; Z68.25 Body mass index [BMI] 25.0-25.9, adult
CPT/HCPCS: 36415; 71046; 71275; 74420; 80048; 80053; 81001; 82805; 83605; 83735; 83880; 83930; 83935; 84300; 84443; 84484; 85025; 85379; 87040; 87077; 87081; 87086; 87186; 87428; 87430; 93005; 94640; 94760; 96365; 96367; 96375; C1769; J0692; J1100; J1650; J1885; J2003; J2405; J2704; J3475; J7042; J7512; J7620; Q9967

== ENCOUNTER 2024-12-15 14:30 | Outpatient (CLI) | payer MEDICARE | END 2024-12-15 14:31 | disposition home or self-care (01) | LOC: BICRAD 14:30 | PROVIDERS: ATTEND Nurse Practitioner Family | DX: R09.89 Other specified symptoms and signs involving the circulatory and respiratory systems (principal); Z87.448 Personal history of other diseases of urinary system | CPT/HCPCS: 36415; 71046; 80053; 81001; 83013; 83880; 84439; 84443; 85025; 87077; 87086; 87186 ==